=== PATIENT | female | born 1965 | race Caucasian/White ===

== ENCOUNTER 2019-02-23 16:58 | Emergency (ER) | payer OTHER ==
[~2019-02-23] VITALS: Ht 170.2 cm; Wt 81.7 kg
[~2019-02-23 16:58] MED LIST: BACTRIM DS TAB1 EACH PO; IBUPROFEN600 MG PO; NORCO 5-325 TA1 EACH PO; PROGESTERONE100 MG; THYROID; TRAZODONE HCL50 MG PO; VYVANSE40 MG PO; ZOFRAN ODT4 MG PO
--- OUTSIDE RECORDS SUMMARY | 2019-02-23 17:02 | XMS ---
PreManage Notification: TACHO MÁRQUEZ Security [employer] Events No recent Security Events currently on file CRITERIA MET - PDMP CARE PROVIDERS Sreekanth Coulter MD Primary Care Current PHONE: [phone] orca Case or Supervising Chef Current PHONE: Unknown Ana [facility] Other Current [facility] PHONE: Unknown Hipolito has no Care Guidelines for this patient. E.D. VISIT COUNT (12 MO.) 1 MALINI Jaramillo TOTAL 1 NOTE: Visits indicate total known visits. ED/UCC VISIT TRACKING (12 MO.) 02/23/2019 16:59 [place] TYPE: Emergency COMPLAINT: - BACK PAIN NO KNOWN INJURY INPATIENT VISIT TRACKING (12 MO.) No inpatient visits to display in this time frame [id number]
[2019-02-23] MEDS ORDERED: CYCLOBENZAPRINE10 MG PO (17:16)
[2019-02-23] MEDS ORDERED: DICLOFENAC SODI50 MG PO (17:17)
[2019-02-23] MEDS ORDERED: NORCO 5-325 TA1 EACH PO (18:15)
[2019-02-23] MEDS ORDERED: MEDROL4 MG PO (18:15)
== END 2019-02-23 20:12 | disposition home or self-care (01) ==
LOC: ED 16:58
DX: M54.5 Low back pain (principal); Z90.49 Acquired absence of other specified parts of digestive tract; Z88.0 Allergy status to penicillin; Z79.899 Other long term (current) drug therapy
CPT/HCPCS: 72131; 96374; 96375; 96376; 99284-25; J1100; J1170; J1885

== ENCOUNTER 2020-08-12 21:38 | Emergency (ER) | payer OTHER ==
[~2020-08-12] VITALS: Ht 170.2 cm; Wt 81.6 kg
[~2020-08-12 21:38] MED LIST changes: +CYCLOBENZAPRINE10 MG PO; +DICLOFENAC SODI50 MG PO; +MEDROL4 MG PO
[2020-08-12] MEDS ORDERED: COZAAR50 MG PO (21:56)
[2020-08-12] MEDS ORDERED: AMLODIPINE BESYL5 MG PO (21:56)
[2020-08-12] MEDS ORDERED: NORVASC5 MG PO (21:57)
[2020-08-12] MEDS ORDERED: BACTRIM DS TAB1 EACH PO (23:37)
[2020-08-12] MEDS ORDERED: NORCO 5-325 TA1 EACH PO (23:38)
== END 2020-08-12 23:52 | disposition home or self-care (01) ==
LOC: ED 21:38
DX: L03.115 Cellulitis of right lower limb (principal); I10 Essential (primary) hypertension; Z88.0 Allergy status to penicillin; Z79.899 Other long term (current) drug therapy
CPT/HCPCS: 80053; 85025; 93971; 99284-25

== ENCOUNTER → 2022-12-30 | Emergency (ER) | payer OTHER ==
[~2022-12-30] VITALS: Ht 170.2 cm; Wt 81.7 kg
[~2022-12-30] MED LIST changes: +AMLODIPINE BESYL5 MG PO; +COZAAR25 MG PO; +COZAAR50 MG PO; +NORVASC5 MG PO; +VYVANSE10 MG PO; +WELLBUTRIN XL150 MG PO
--- OUTSIDE RECORDS SUMMARY | 2022-12-30 04:48 | XMS ---
PreManage Notification: TACHO ANDRADE Security Maintenance Groundskeeper Events No recent Security Events currently on file CRITERIA MET - [facility] CARE PROVIDERS -Ana- Dentist: Finishing Supervisor [facility] PHONE: [phone] LARISSA Johnson Nurse Practitioner 02/25/2019-Ayden BAKER PHONE: Unknown Hipolito has no Care Guidelines for this patient. Chaim VISIT COUNT (12 MO.) Catrachito Jaramillo TOTAL 1 NOTE: Visits indicate total known visits. ED/UCC VISIT TRACKING (12 MO.) 12/30/2022 04:46 [facility] [place] TYPE: Emergency COMPLAINT: - MIGRAINE INPATIENT VISIT TRACKING (12 MO.) No inpatient visits to display in this time frame [id number]
[2022-12-30 06:02] VITALS: BP 107/76
== END ==
LOC: ED 04:45
DX: R51.9 Headache, unspecified (principal); I10 Essential (primary) hypertension; Z88.0 Allergy status to penicillin; Z79.899 Other long term (current) drug therapy
CPT/HCPCS: 96361; 96374; 96375; 99283-25; J1200; J1885; J2765; J7030